=== PATIENT | male | born 1960 | race Two or more races ===

== ENCOUNTER 2019-11-03 13:38 | Emergency (ER) | payer OTHER ==
[~2019-11-03] VITALS: Ht 177.8 cm; Wt 81.6 kg
[2019-11-03] MEDS ORDERED: IBUPROFEN 600MG TABLET PO ONE (14:45)
[2019-11-03] MEDS ORDERED: TETANUS, DIPHTHERIA, PERTUSSIS VAC/PF 0.5ML (>7YR OLD) IM ONE (14:45)
[2019-11-03] MEDS ORDERED: BACITRACIN ZINC OINT UDPKT TOP ONE (14:45)
[2019-11-03] MEDS ORDERED: LIDOCAINE HCL/EPINEPHRINE 1%-EPI 1:100,000 20 ML VIAL INFIL ONE (14:45)
[2019-11-03] MEDS ORDERED: HYDROCODONE/ACETAMINOPHEN 5/325MG TABLET PO ONE (14:45)
[2019-11-03] MEDS ORDERED: LIDOCAINE 1%/EPI 1:100,000 10 ML VIAL IJ ONE (14:45)
[2019-11-03] MEDS ORDERED: CEPHALEXIN 250MG CAPSULE PO ONE (16:00)
[2019-11-03 16:17] VITALS: BP 125/92
== END 2019-11-03 17:28 | disposition home or self-care (01) ==
LOC: ER 13:38
DX: S61.411A Laceration without foreign body of right hand, initial encounter (principal); X58.XXXA Exposure to other specified factors, initial encounter; Y93.89 Activity, other specified; Y92.89 Other specified places as the place of occurrence of the external cause; Y99.8 Other external cause status
CPT/HCPCS: 12004; 90471; 90715; 99284; J3490